=== PATIENT | male | born 1945 | race Caucasian/White ===

== ENCOUNTER 2018-03-30 11:22 | Observation (INO) ==
[2018-03-30 12:10] LABS: Baso # (Auto) 0.1 th/mm3 (0.0-0.2); Baso % (Auto) 0.7 % (0.0-2.0); Eos % (Auto) 0.6 % (0.0-4.0); Hematocrit 32.7 % (39.0-51.0); Hemoglobin 10.9 gm/dL (13.0-17.0); Lymph # (Auto) 0.9 th/mm3 (1.0-4.8); Lymph % (Auto) 12.6 % (9.0-44.0); Mean Corpuscular HGB Conc 33.4 % (32.0-36.0); Mean Corpuscular Volume 95.8 fL (80.0-100.0); Mean Platelet Volume 9.4 fL (7.0-11.0); Mono # (Auto) 0.5 th/mm3 (0.0-0.9); Mono % (Auto) 6.7 % (0.0-8.0); Neut % (Auto) 79.4 % (16.0-70.0); Platelet Count 216 th/mm3 (150-450); Red Blood Count 3.41 mil/mm3 (4.50-5.90); Red Cell Distribution Width 13.8 % (11.6-17.2); White Blood Count 7.5 th/mm3 (4.0-11.0)
[2018-03-30] MEDS ORDERED: Sod Chloride 0.9% Inj 1,000 ML IV.SIG SCH ×2 (12:15→14:15)
[2018-03-30 12:20] LABS: Bilirubin,Urine Negative (Negative); Clarity,Urine Clear (Clear); Color,Urine Colorless (Yellw/Straw); Glucose,Urine (UA) 500 or Greater mg/dL (Negative); Leukocyte Esterase,Urine Negative (Negative); Mucus,Urine Few /lpf (Occasional); Nitrite,Urine Negative (Negative); Specific Gravity,Urine 1.008 (1.002-1.035)
[2018-03-30 12:35] LABS: Alanine Aminotransferase 23 U/L (12-78); Albumin 3.8 g/dL (3.4-5.0); Anion Gap 8 meq/L (5-15); Aspartate Aminotransferase 14 U/L (15-37); Blood Urea Nitrogen 22 mg/dL (7-18); Calcium 9.2 mg/dL (8.5-10.1); Carbon Dioxide 26.5 meq/L (21.0-32.0); Chloride 102 meq/L (98-107); Glomerular Filtration Rate 43 mL/min (>89); Glucose,Random 343 mg/dL (74-106); Potassium 4.7 meq/L (3.5-5.1); Sodium 136 meq/L (136-145)
[2018-03-30 12:37] LABS: Alkaline Phosphatase 51 U/L (45-117)
--- NOTE | 2018-03-30 15:14 | ED ---
HPI General Chief complaint: Diabetic Stated complaint: Diabetic Complaint Time Seen by Provider: 03/30/18 11:50 History of Present Illness HPI narrative: This is a 73-year-old male with history of diabetes mellitus, who [facility] after he was found to have elevated blood sugar. Patient states he has been dizzy over the last 24-48 hours. He states that [facility] the [facility] to [facility] today and they noted his blood sugar to be in the 400s. The patient reports positional dizziness. He states the dizziness is worse when he gets up from a sitting or lying position. He denies any chest pain, chest pressure. He does report having palpitations with the dizziness. He does report polyuria. He denies any polydipsia. Related Data Home Medications Medication Instructions Recorded Confirmed insulin aspart U-100 [Novolog 3 unit SUBCUT AC LUNCH 03/31/18 03/31/18 Flexpen U-100 Insulin] Previous Rx's Medication Instructions Recorded insulin degludec [Tresiba 24 unit SUBCUT DAILY #0 ml 03/31/18 FlexTouch U-100] Allergies Allergy/AdvReac Type Severity Reaction Status Date / Time No Known Allergies Allergy Mild Blister Uncoded 03/30/18 11:27 Review of Systems ROS: all other systems reviewed are negative Constitutional Denies chills and Denies fever(s) Eyes Reports system reviewed and no additional complaints, except as docu ENT Reports system reviewed and no additional complaints, except as docu Cardiovascular Denies chest pain and Reports palpitations Respiratory Denies chest congestion and Denies dyspnea Gastrointestinal Denies diarrhea, Denies nausea and Denies vomiting Genitourinary Denies dysuria and Reports urinary frequency Musculoskeletal Reports system reviewed and no additional complaints, except as docu Neurologic Reports dizziness, Denies headache(s), Denies paresthesias and Denies weakness Endocrine Denies polydipsia and Reports polyuria [facility] Medical History Medical History Diabetes (Acute) HTN (hypertension) (Acute) Hyperlipemia, mixed (Acute) Surgical History Surgical History History of appendectomy (Acute) History of tonsillectomy (Acute) Social History Social History Substance History: No History of Abuse Second Hand Smoke Exposure: Yes Smoking Status: Former smoker Tobacco Type: Cigarettes How Often Do You Have a Drink Containing Alcohol: 4 or more times a week Recent Travel in [facility] within the Last 8 Weeks: No Recent Out of Country Travel within the Last 8 Weeks: No Immunization History Tetanus Immunization: Unsure Exam Narrative Exam Narrative: GENERAL: Well-developed well-nourished male in no acute respiratory distress. SKIN: Focused skin assessment warm/dry. No tenting. HEAD: Atraumatic. Normocephalic. EYES: No scleral icterus. No injection or drainage. ENT: No nasal bleeding or discharge. Mucous membranes pink and dry. NECK: Trachea midline. No JVD. Supple. CARDIOVASCULAR: Regular rate and rhythm. No murmur appreciated. RESPIRATORY: No accessory muscle use. Clear to auscultation. Breath sounds equal bilaterally. GASTROINTESTINAL: Abdomen soft, non-tender, nondistended. Hepatic and splenic margins not palpable. MUSCULOSKELETAL: No obvious deformities. No clubbing. No cyanosis. No edema. NEUROLOGICAL: Awake and alert. No obvious cranial nerve deficits. Motor grossly within normal limits. Normal speech. Patient still has positional/ orthostatic dizziness. Course Initial Documented Vital Signs Temperature 98.3 F 03/30/18 11:27 Pulse Rate 98 H 03/30/18 11:27 Respiratory Rate 16 03/30/18 11:27 Blood Pressure 156/82 H 03/30/18 11:27 Pulse Oximetry 98 03/30/18 11:27 Last Documented Vital Signs Temperature 97.5 F L 03/31/18 12:00 Pulse Rate 73 03/31/18 12:00 Respiratory Rate 14 03/31/18 12:00 Blood Pressure 138/65 03/31/18 12:00 Pulse Oximetry 97 03/31/18 12:00 Medical Decision Making [facility] Narrative Medical decision making narrative: This is a 73-year-old male with a history of insulin dependent diabetes, hypertension, presents [facility] the request [facility] for [facility] and elevated blood sugar. Patient states that his blood sugar is usually fairly well controlled. [facility] Blood sugar was 343. Patient reports polyuria. Patient's creatinine was also 1.58. We do not have a baseline to compare with. Concern here is the patient has acute on chronic kidney injury. The patient will be admitted for hydration. Case was discussed with the [facility] hospitalist who agrees for an observation admission. He had been given 2 IV boluses. He feels better however still having some baseline dizziness. Medical Screen Exam Complete: Yes Emergency Medical Condition: Yes Differential Diagnosis Differential Diagnosis: Metabolic derangement versus uncontrolled hyperglycemia versus infectious process Lab Data Result diagrams: 03/31/18 04:26 03/31/18 04:26 Lab Results 03/30/18 03/30/18 03/30/18 Range/Units 11:58 11:58 11:58 WBC 7.5 (4.0-11.0) th/mm3 RBC 3.41 L (4.50-5.90) mil/mm3 Hgb 10.9 L (13.0-17.0) gm/dL Hct 32.7 L (39.0-51.0) % MCV 95.8 (80.0-100.0) fL MCH 32.0 (27.0-34.0) pg MCHC 33.4 (32.0-36.0) % RDW 13.8 (11.6-17.2) % Plt Count 216 (150-450) th/mm3 MPV 9.4 (7.0-11.0) fL Neut % (Auto) 79.4 H (16.0-70.0) % Lymph % (Auto) 12.6 (9.0-44.0) % [place] % (Auto) 6.7 (0.0-8.0) % Eos % (Auto) 0.6 (0.0-4.0) % Baso % (Auto) 0.7 (0.0-2.0) % Neut # (Auto) 6.0 (1.8-7.7) th/mm3 Lymph # (Auto) 0.9 L (1.0-4.8) th/mm3 [place] # (Auto) 0.5 (0.0-0.9) th/mm3 Eos # (Auto) 0.0 (0.0-0.4) th/mm3 Baso # (Auto) 0.1 (0.0-0.2) th/mm3 WBC Differential . Differential Comment Auto diff final Sodium 136 (136-145) meq/L Potassium 4.7 (3.5-5.1) meq/L Chloride 102 (98-107) meq/L Carbon Dioxide 26.5 (21.0-32.0) meq/L Anion Gap 8 (5-15) meq/L BUN 22 H (7-18) mg/dL Creatinine 1.58 H (0.60-1.30) mg/dL Estimated GFR 43 L (>89) mL/min POC Glucose (68-110) mg/dl Random Glucose 343 H (74-106) mg/dL Calcium 9.2 (8.5-10.1) mg/dL Total Bilirubin 0.5 (0.2-1.0) mg/dL AST 14 L (15-37) U/L ALT 23 (12-78) U/L Alkaline Phosphatase 51 (45-117) U/L Troponin I (0.02-0.05) ng/mL Total Protein 7.0 (6.4-8.2) g/dL Albumin 3.8 (3.4-5.0) g/dL Urine Color Colorless (Yellw/Straw) Urine Clarity Clear (Clear) Urine pH 7.0 (5.0-8.5) Ur Specific [place] 1.008 (1.002-1.035) Urine Protein Negative (Neg-Trace) mg/dL Urine Glucose (UA) 500 or greater (Negative) mg/dL Urine Ketones Negative (Negative) mg/dL Urine Occult Blood Negative (Negative) Urine Nitrate Negative (Negative) Urine Bilirubin Negative (Negative) Urine Urobilinogen Less than 2 (Less than 2) mg/dL Ur Leukocyte Esterase Negative (Negative) Urine Mucus Few H (Occasional) /lpf Micro UA Comment Culture not ind Ur Microscopic Review Not Reportable Urine Culture Comments Culture not ind 03/30/18 03/30/18 03/30/18 Range/Units 11:58 12:48 15:02 WBC (4.0-11.0) th/mm3 RBC (4.50-5.90) mil/mm3 Hgb (13.0-17.0) gm/dL Hct (39.0-51.0) % MCV (80.0-100.0) fL MCH (27.0-34.0) pg MCHC (32.0-36.0) % RDW (11.6-17.2) % Plt Count (150-450) th/mm3 MPV (7.0-11.0) fL Neut % (Auto) (16.0-70.0) % Lymph % (Auto) (9.0-44.0) % [place] % (Auto) (0.0-8.0) % Eos % (Auto) (0.0-4.0) % Baso % (Auto) (0.0-2.0) % Neut # (Auto) (1.8-7.7) th/mm3 Lymph # (Auto) (1.0-4.8) th/mm3 [place] # (Auto) (0.0-0.9) th/mm3 Eos # (Auto) (0.0-0.4) th/mm3 Baso # (Auto) (0.0-0.2) th/mm3 WBC Differential Differential Comment Sodium (136-145) meq/L Potassium (3.5-5.1) meq/L Chloride (98-107) meq/L Carbon Dioxide (21.0-32.0) meq/L Anion Gap (5-15) meq/L BUN (7-18) mg/dL Creatinine (0.60-1.30) mg/dL Estimated GFR (>89) mL/min POC Glucose 348 H 208 H (68-110) mg/dl Random Glucose (74-106) mg/dL Calcium (8.5-10.1) mg/dL Total Bilirubin (0.2-1.0) mg/dL AST (15-37) U/L ALT (12-78) U/L Alkaline Phosphatase (45-117) U/L Troponin I Less than 0.02 L (0.02-0.05) ng/mL Total Protein (6.4-8.2) g/dL Albumin (3.4-5.0) g/dL Urine Color (Yellw/Straw) Urine Clarity (Clear) Urine pH (5.0-8.5) Ur Specific [place] (1.002-1.035) Urine Protein (Neg-Trace) mg/dL Urine Glucose (UA) (Negative) mg/dL Urine Ketones (Negative) mg/dL Urine Occult Blood (Negative) Urine Nitrate (Negative) Urine Bilirubin (Negative) Urine Urobilinogen (Less than 2) mg/dL Ur Leukocyte Esterase (Negative) Urine Mucus (Occasional) /lpf Micro UA Comment Ur Microscopic Review Urine Culture Comments 03/30/18 03/30/18 03/30/18 Range/Units 17:46 19:44 22:52 WBC (4.0-11.0) th/mm3 RBC (4.50-5.90) mil/mm3 Hgb (13.0-17.0) gm/dL Hct (39.0-51.0) % MCV (80.0-100.0) fL MCH (27.0-34.0) pg MCHC (32.0-36.0) % RDW (11.6-17.2) % Plt Count (150-450) th/mm3 MPV (7.0-11.0) fL Neut % (Auto) (16.0-70.0) % Lymph % (Auto) (9.0-44.0) % [place] % (Auto) (0.0-8.0) % Eos % (Auto) (0.0-4.0) % Baso % (Auto) (0.0-2.0) % Neut # (Auto) (1.8-7.7) th/mm3 Lymph # (Auto) (1.0-4.8) th/mm3 [place] # (Auto) (0.0-0.9) th/mm3 Eos # (Auto) (0.0-0.4) th/mm3 Baso # (Auto) (0.0-0.2) th/mm3 WBC Differential Differential Comment Sodium (136-145) meq/L Potassium (3.5-5.1) meq/L Chloride (98-107) meq/L Carbon Dioxide (21.0-32.0) meq/L Anion Gap (5-15) meq/L BUN (7-18) mg/dL Creatinine (0.60-1.30) mg/dL Estimated GFR (>89) mL/min POC Glucose 147 H 188 H 184 H (68-110) mg/dl Random Glucose (74-106) mg/dL Calcium (8.5-10.1) mg/dL Total Bilirubin (0.2-1.0) mg/dL AST (15-37) U/L ALT (12-78) U/L Alkaline Phosphatase (45-117) U/L Troponin I (0.02-0.05) ng/mL Total Protein (6.4-8.2) g/dL Albumin (3.4-5.0) g/dL Urine Color (Yellw/Straw) Urine Clarity (Clear) Urine pH (5.0-8.5) Ur Specific [place] (1.002-1.035) Urine Protein (Neg-Trace) mg/dL Urine Glucose (UA) (Negative) mg/dL Urine Ketones (Negative) mg/dL Urine Occult Blood (Negative) Urine Nitrate (Negative) Urine Bilirubin (Negative) Urine Urobilinogen (Less than 2) mg/dL Ur Leukocyte Esterase (Negative) Urine Mucus (Occasional) /lpf Micro UA Comment Ur Microscopic Review Urine Culture Comments 03/31/18 03/31/18 03/31/18 Range/Units 04:26 04:26 06:06 WBC 6.3 (4.0-11.0) th/mm3 RBC 3.31 L (4.50-5.90) mil/mm3 Hgb 10.6 L (13.0-17.0) gm/dL Hct 31.6 L (39.0-51.0) % MCV 95.4 (80.0-100.0) fL MCH 32.1 (27.0-34.0) pg MCHC 33.6 (32.0-36.0) % RDW 13.7 (11.6-17.2) % Plt Count 220 (150-450) th/mm3 MPV 9.6 (7.0-11.0) fL Neut % (Auto) 62.7 (16.0-70.0) % Lymph % (Auto) 21.9 (9.0-44.0) % [place] % (Auto) 10.3 H (0.0-8.0) % Eos % (Auto) 3.8 (0.0-4.0) % Baso % (Auto) 1.3 (0.0-2.0) % Neut # (Auto) 3.9 (1.8-7.7) th/mm3 Lymph # (Auto) 1.4 (1.0-4.8) th/mm3 [place] # (Auto) 0.6 (0.0-0.9) th/mm3 Eos # (Auto) 0.2 (0.0-0.4) th/mm3 Baso # (Auto) 0.1 (0.0-0.2) th/mm3 WBC Differential . Differential Comment Auto diff final Sodium 144 (136-145) meq/L Potassium 4.2 (3.5-5.1) meq/L Chloride 110 H D (98-107) meq/L Carbon Dioxide 28.7 (21.0-32.0) meq/L Anion Gap 5 (5-15) meq/L BUN 19 H (7-18) mg/dL Creatinine 1.26 (0.60-1.30) mg/dL Estimated GFR 56 L (>89) mL/min POC Glucose 54 L (68-110) mg/dl Random Glucose 36 L* D (74-106) mg/dL Calcium 8.3 L D (8.5-10.1) mg/dL Total Bilirubin (0.2-1.0) mg/dL AST (15-37) U/L ALT (12-78) U/L Alkaline Phosphatase (45-117) U/L Troponin I (0.02-0.05) ng/mL Total Protein (6.4-8.2) g/dL Albumin (3.4-5.0) g/dL Urine Color (Yellw/Straw) Urine Clarity (Clear) Urine pH (5.0-8.5) Ur Specific [place] (1.002-1.035) Urine Protein (Neg-Trace) mg/dL Urine Glucose (UA) (Negative) mg/dL Urine Ketones (Negative) mg/dL Urine Occult Blood (Negative) Urine Nitrate (Negative) Urine Bilirubin (Negative) Urine Urobilinogen (Less than 2) mg/dL Ur Leukocyte Esterase (Negative) Urine Mucus (Occasional) /lpf Micro UA Comment Ur Microscopic Review Urine Culture Comments 03/31/18 03/31/18 03/31/18 Range/Units 06:08 06:25 06:41 WBC (4.0-11.0) th/mm3 RBC (4.50-5.90) mil/mm3 Hgb (13.0-17.0) gm/dL Hct (39.0-51.0) % MCV (80.0-100.0) fL MCH (27.0-34.0) pg MCHC (32.0-36.0) % RDW (11.6-17.2) % Plt Count (150-450) th/mm3 MPV (7.0-11.0) fL Neut % (Auto) (16.0-70.0) % Lymph % (Auto) (9.0-44.0) % [place] % (Auto) (0.0-8.0) % Eos % (Auto) (0.0-4.0) % Baso % (Auto) (0.0-2.0) % Neut # (Auto) (1.8-7.7) th/mm3 Lymph # (Auto) (1.0-4.8) th/mm3 [place] # (Auto) (0.0-0.9) th/mm3 Eos # (Auto) (0.0-0.4) th/mm3 Baso # (Auto) (0.0-0.2) th/mm3 WBC Differential Differential Comment Sodium (136-145) meq/L Potassium (3.5-5.1) meq/L Chloride (98-107) meq/L Carbon Dioxide (21.0-32.0) meq/L Anion Gap (5-15) meq/L BUN (7-18) mg/dL Creatinine (0.60-1.30) mg/dL Estimated GFR (>89) mL/min POC Glucose 55 L 76 96 (68-110) mg/dl Random Glucose (74-106) mg/dL Calcium (8.5-10.1) mg/dL Total Bilirubin (0.2-1.0) mg/dL AST (15-37) U/L ALT (12-78) U/L Alkaline Phosphatase (45-117) U/L Troponin I (0.02-0.05) ng/mL Total Protein (6.4-8.2) g/dL Albumin (3.4-5.0) g/dL Urine Color (Yellw/Straw) Urine Clarity (Clear) Urine pH (5.0-8.5) Ur Specific [place] (1.002-1.035) Urine Protein (Neg-Trace) mg/dL Urine Glucose (UA) (Negative) mg/dL Urine Ketones (Negative) mg/dL Urine Occult Blood (Negative) Urine Nitrate (Negative) Urine Bilirubin (Negative) Urine Urobilinogen (Less than 2) mg/dL Ur Leukocyte Esterase (Negative) Urine Mucus (Occasional) /lpf Micro UA Comment Ur Microscopic Review Urine Culture Comments 03/31/18 03/31/18 03/31/18 Range/Units 06:57 08:08 11:02 WBC (4.0-11.0) th/mm3 RBC (4.50-5.90) mil/mm3 Hgb (13.0-17.0) gm/dL Hct (39.0-51.0) % MCV (80.0-100.0) fL MCH (27.0-34.0) pg MCHC (32.0-36.0) % RDW (11.6-17.2) % Plt Count (150-450) th/mm3 MPV (7.0-11.0) fL Neut % (Auto) (16.0-70.0) % Lymph % (Auto) (9.0-44.0) % [place] % (Auto) (0.0-8.0) % Eos % (Auto) (0.0-4.0) % Baso % (Auto) (0.0-2.0) % Neut # (Auto) (1.8-7.7) th/mm3 Lymph # (Auto) (1.0-4.8) th/mm3 [place] # (Auto) (0.0-0.9) th/mm3 Eos # (Auto) (0.0-0.4) th/mm3 Baso # (Auto) (0.0-0.2) th/mm3 WBC Differential Differential Comment Sodium (136-145) meq/L Potassium (3.5-5.1) meq/L Chloride (98-107) meq/L Carbon Dioxide (21.0-32.0) meq/L Anion Gap (5-15) meq/L BUN (7-18) mg/dL Creatinine (0.60-1.30) mg/dL Estimated GFR (>89) mL/min POC Glucose 147 H 221 H 245 H (68-110) mg/dl Random Glucose (74-106) mg/dL Calcium (8.5-10.1) mg/dL Total Bilirubin (0.2-1.0) mg/dL AST (15-37) U/L ALT (12-78) U/L Alkaline Phosphatase (45-117) U/L Troponin I (0.02-0.05) ng/mL Total Protein (6.4-8.2) g/dL Albumin (3.4-5.0) g/dL Urine Color (Yellw/Straw) Urine Clarity (Clear) Urine pH (5.0-8.5) Ur Specific [place] (1.002-1.035) Urine Protein (Neg-Trace) mg/dL Urine Glucose (UA) (Negative) mg/dL Urine Ketones (Negative) mg/dL Urine Occult Blood (Negative) Urine Nitrate (Negative) Urine Bilirubin (Negative) Urine Urobilinogen (Less than 2) mg/dL Ur Leukocyte Esterase (Negative) Urine Mucus (Occasional) /lpf Micro UA Comment Ur Microscopic Review Urine Culture Comments Discharge Plan Discharge Disposition Patient Disposition: 01 Discharge Home Discharge Condition Condition: Good Discharge Order Discharge Orders: Discharge Order (Routine); Ordered 03/31/18 Ordered By: Romero Magallanes Discharge Details Diagnosis: Uncontrolled diabetes mellitus with hyperglycemia, Dizziness, Acute kidney injury Physicians Team ED Provider: Jay Vargas Primary Care Provider: [facility] 's Attending Provider: Selvin Rosales Discharge Interventions Interventions: ED Discharge Assessment Last Done: 03/30/18 16:58 Status ED Status: Left Department Discharge Information Discharge Date/Time: 03/30/18 17:12 Discharge Location: All at Home
--- NOTE | 2018-03-30 15:55 | P.HPFP ---
History of Present Illness Primary Care Physician: Physician 's [facility] History of Present Illness: This patient is a 73-year-old male with a past medical history of insulin- dependent diabetes and hypertension who has been admitted for observation for symptomatic hyperglycemia. Patient reports that he began to feel "out of it" since yesterday afternoon. He reports that last night he checked his sugars which were found to be in the 400s and administered 15 units of NovoLog which dropped his blood sugar to 200. Patient then went to sleep. Upon waking up patient checked his sugar once again found to be 54 at which point he drank a can of soda and went on about his day. Patient had previous ophthalmology appointment at the [place] and while there he was found to have a sugar of 400 and was sent to the ED by the attending physician. Patient denies any nausea, vomiting, chills, fever, dizziness, vision changes, diarrhea or constipation, but does endorse polyuria without hematuria or dysuria as well as also endorses pain in the hips when he walks. Of note: During our conversation patient mentioned that he has had a sharp pain in his chest. He reports that this pain is been present for several years and has been worked up by his doctor previously. He has gone 1 year since feeling this chest pain but it began again a couple weeks ago. He described the chest pain is sharp and midway between his left nipple and sternum. He reports that the pain lasts 1 second and is self resolving. It is not related to activity, position, or food. He says there are no exacerbating or alleviating factors and the pain does not radiate. He describes the pain as sharp as it is a 5 out of 10. The last time he experiences pain was this morning. PMHx: HTN, Insulin dependent diabetes diagnoses 22 years. Surgical Hx: Appendectomy in 1951, tonsillectomy in 1951, Meds: 26 units of long acting insulin once in the morning, and 3 units of novolog before lunch FHx: Brother of [place] at age of 66 a month ago Social Hx: Myranda from [place]. for 1 year, at 76 from COPD. The patient lives alone and is retired from cabinet work. He has 2 kids, a son and a daughter and are both healthy. 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 During this time he never deployed and spent his [facility]. He reports a 30 pack year smoking history but quit 35 years ago, je drinks 1 beer every night, he is a never drug user. Allergies: NKA Code: Full, Daughter Yusra Emmanuel is decision maker if patient becomes incapacitated. - Diagnosis (1) Hyperglycemia (2) Insulin dependent diabetes mellitus (3) Hypertension (4) Nutrition, metabolism, and development symptoms Review of Systems Constitutional: Denies chills, Denies fever(s), Denies headache(s), Denies dizziness, denies recent illnesses Eyes: Denies change in vision, Denies double vision, Denies blurry vision Cardiovascular: Endorses chest pain as stated in HPI, Denies fast heart rate, Denies rapid, pounding, or irregular heartbeat Respiratory: Denies shortness of breath or wheezing Gastrointestinal: Denies abdominal pain, Denies constipation, Denies loose stools, Denies nausea, Denies vomiting Genitourinary: Endorses urinary frequency, denies difficulty urinating, Denies painful urination, Denies blood in urine PMFSH - History History Provided By: Patient - Medical History Medical History: Medical History (Last Updated 03/30/18 @ 11:33 by Alayna Ross) Diabetes HTN (hypertension) Hyperlipemia, mixed - Tobacco History Second Hand Smoke Exposure: No Tobacco Use In Past 30 Days: No Smoking Status: Never smoker Tobacco Type: Cigarettes - Alcohol History How Often Do You Have a Drink Containing Alcohol: Monthly or less - Substance Use History Substance History: No History of Abuse - Travel History Recent Travel in the [facility] Within the Last 8 Weeks: No Recent Travel Out of the Country Within the Last 8 Weeks: No - Immunization History Tetanus Immunization: Unsure Medications and Allergies Active Medications: Active Medications Sodium Chloride (Ns Inj) 1,000 mls @ 0 mls/hr IV.SIG BOLUS CARLIE Last Infusion: 03/30/18 14:09 Dose: Infused Sodium Chloride (Ns Inj) 1,000 mls @ 0 mls/hr IV.SIG BOLUS CARLIE Last Infusion: 03/30/18 14:34 Dose: Infused Allergies Allergy/AdvReac Type Severity Reaction Status Date / Time No Known Allergies Allergy Mild Blister Uncoded 03/30/18 11:27 Home Medications Medication Instructions Recorded Confirmed Type Unable to Obtain Home Meds 03/30/18 03/30/18 History Exam Vital signs: Vital Signs 03/30/18 11:27 03/30/18 11:45 Temperature 98.3 F 98.2 F Pulse Rate 98 H 80 Respiratory Rate 16 16 Blood Pressure 156/82 H 172/80 H Pulse Oximetry 98 Intake & Output 03/29/18 03/30/18 03/30/18 18:59 06:59 18:59 Intake Total 1999 Balance 1999 Weight 77.111 kg Intake: IV 1999 NS Inj 1,000 ML @ Wide Open IV. 1999 SIG BOLUS CARLIE Rx#:[id number] Narrative: GENERAL: Well-nourished, well-developed patient. No acute distress. SKIN: Warm and dry. No rash. EYES: No scleral icterus. No injection or drainage. PERRLA. EOMI. HENT: Normocephalic. Atraumatic. Mucous membranes mildly dry. NECK: Supple, trachea midline. No JVD or lymphadenopathy. CARDIOVASCULAR: Regular rate and rhythm without obvious murmurs, gallops, or rubs. RESPIRATORY: Breath sounds equal bilaterally. No accessory muscle use. CTAB. GASTROINTESTINAL: Abdomen soft, non-tender, nondistended. BS WNL. MUSCULOSKELETAL: No cyanosis or edema. Strength grossly WNL. BACK: Nontender without obvious deformity. No CVA tenderness. NEURO/PSYCH: Afocal. Awake, alert, and oriented x3. Results - Labs Result diagrams: 03/30/18 11:58 03/30/18 11:58 Abnormal lab results 03/30/18 03/30/18 03/30/18 Range/Units 11:58 11:58 11:58 RBC 3.41 L (4.50-5.90) mil/mm3 Hgb 10.9 L (13.0-17.0) gm/dL Hct 32.7 L (39.0-51.0) % Neut % (Auto) 79.4 H (16.0-70.0) % Lymph # (Auto) 0.9 L (1.0-4.8) th/mm3 BUN 22 H (7-18) mg/dL Creatinine 1.58 H (0.60-1.30) mg/dL Estimated GFR 43 L (>89) mL/min POC Glucose (68-110) mg/dl Random Glucose 343 H (74-106) mg/dL AST 14 L (15-37) U/L Urine Mucus Few H (Occasional) /lpf 03/30/18 03/30/18 Range/Units 12:48 15:02 RBC (4.50-5.90) mil/mm3 Hgb (13.0-17.0) gm/dL Hct (39.0-51.0) % Neut % (Auto) (16.0-70.0) % Lymph # (Auto) (1.0-4.8) th/mm3 BUN (7-18) mg/dL Creatinine (0.60-1.30) mg/dL Estimated GFR (>89) mL/min POC Glucose 348 H 208 H (68-110) mg/dl Random Glucose (74-106) mg/dL AST (15-37) U/L Urine Mucus (Occasional) /lpf Short CBC 03/30/18 Range/Units 11:58 WBC 7.5 (4.0-11.0) th/mm3 Hgb 10.9 L (13.0-17.0) gm/dL Hct 32.7 L (39.0-51.0) % Plt Count 216 (150-450) th/mm3 BMP 03/30/18 11:58 Sodium 136 Potassium 4.7 Chloride 102 Carbon Dioxide 26.5 BUN 22 H Creatinine 1.58 H Calcium 9.2 Liver Function 03/30/18 Range/Units 11:58 Total Bilirubin 0.5 (0.2-1.0) mg/dL AST 14 L (15-37) U/L ALT 23 (12-78) U/L Alkaline Phosphatase 51 (45-117) U/L Albumin 3.8 (3.4-5.0) g/dL Urine 03/30/18 Range/Units 11:58 Urine Color Colorless (Yellw/Straw) Urine Clarity Clear (Clear) Urine pH 7.0 (5.0-8.5) Ur Specific [place] 1.008 (1.002-1.035) Urine Protein Negative (Neg-Trace) mg/dL Urine Glucose (UA) 500 or greater (Negative) mg/dL Caprini VTE Risk Assessment Caprini VTE Risk Assessment: Moderate/High Risk (score >= 2) Caprini Risk Assessment Model: Point Value = 1 Point Value = 2 Point Value = 3 Point Value = 5 Age 41-60 Minor surgery BMI > 25 kg/m2 Swollen legs Varicose veins or History of unexplained or recurrent spontaneous Oral contraceptives or hormone replacement Sepsis (< 1 month) Serious lung disease, including pneumonia (< 1 month) Abnormal pulmonary function Acute myocardial infarction Congestive heart failure (< 1 month) History of inflammatory bowel disease Medical patient at bed rest Age 61-74 Arthroscopic surgery Major open surgery (> 45 min) Laparoscopic surgery (> 45 min) Malignancy Confined to bed (> 72 hours) Immobilizing plaster cast Central venous access Age >= 75 History of VTE Family history of VTE Factor V Leiden Prothrombin [id number] Lupus anticoagulant Anticardiolipin antibodies Elevated serum homocysteine Heparin-induced thrombocytopenia Other congenital or acquired thrombophilia Stroke (< 1 month) Elective arthroplasty Hip, pelvis, or leg fracture Acute spinal cord injury (< 1 month) Prophylaxis Regimen: Total Risk Factor Score Risk Level Prophylaxis Regimen 0-1 Low Early ambulation 2 Moderate Order ONE of the following: *Sequential Compression Device (SCD) *Heparin 5000 units SQ BID 3-4 Higher Order ONE of the following medications: *Heparin 5000 units SQ TID *Enoxaparin/Lovenox 40 mg SQ daily (WT < 150 kg, CrCl > 30 mL/min) *Enoxaparin/Lovenox 30 mg SQ daily (WT < 150 kg, CrCl > 10-29 mL/min) *Enoxaparin/Lovenox 30 mg SQ BID (WT < 150 kg, CrCl > 30 mL/min) AND/OR *Sequential Compression Device (SCD) 5 or more Highest Order ONE of the following medications: *Heparin 5000 units SQ TID (Preferred with Epidurals) *Enoxaparin/Lovenox 40 mg SQ daily (WT < 150 kg, CrCl > 30 mL/min) *Enoxaparin/Lovenox 30 mg SQ daily (WT < 150 kg, CrCl > 10-29 mL/min) *Enoxaparin/Lovenox 30 mg SQ BID (WT < 150 kg, CrCl > 30 mL/min) AND *Sequential Compression Device (SCD) Assessment and Plan - Assessment (1) Hyperglycemia Code(s): R73.9 - Hyperglycemia, unspecified Status: Acute Plan: This patient is a 73-year-old male with a past medical history of insulin- dependent diabetes and hypertension who has been admitted for observation for symptomatic hyperglycemia. Patient presents to the ED after having a blood sugar level of 400 and feeling "off". Patient could not really expand beyond this definition. Patient found to have a blood sugar of 343 on admission. On admission patient was also feeling much better and currently asymptomatic. Patient received 2 1 L boluses of normal saline in the ED. Patient able to hydrate via p.o. -Hydrate orally. -Low-dose sliding scale -Monitor blood glucose levels -Replete potassium as needed, 4.7 on admission -Hypoglycemia protocol in place (2) Insulin dependent diabetes mellitus Code(s): E11.9 - Type 2 diabetes mellitus without complications; Z79.4 - exterminator (current) use of insulin Status: Acute Plan: See plan above for hyperglycemia. (3) Hypertension Code(s): I10 - Essential (primary) hypertension Status: Acute Plan: Patient suffers from hypertension was treated outpatient with with medication that the patient cannot remember. His blood pressure admission was 156/82. -Clonidine as needed (4) Nutrition, metabolism, and development symptoms Code(s): R63.8 - Other symptoms and signs concerning food and fluid intake Status: Acute Plan: Fluids: No fluids indicated at this time Electrolytes: Replete as needed Nutrition: Diabetic diet DVT prophylaxis: SCDs
[2018-03-30] MEDS ORDERED: Dextrose 50% in Water 50 ML Vial IV.PUSH PRN (16:16)
[2018-03-30] MEDS ORDERED: Naloxone Inj 0.4 MG/ML Vial IV.PUSH PRN (16:16)
[2018-03-30] MEDS ORDERED: Enoxaparin Inj 40 MG/0.4 ML Syringe SQ SCH (16:30)
[2018-03-30] MEDS: Insulin NovoLOG Aspart Correctional Sugar Inj SQ SCH ×2 (18:01→20:22)
[2018-03-31 05:38] LABS: Baso # (Auto) 0.1 th/mm3 (0.0-0.2); Baso % (Auto) 1.3 % (0.0-2.0); Eos # (Auto) 0.2 th/mm3 (0.0-0.4); Eos % (Auto) 3.8 % (0.0-4.0); Hematocrit 31.6 % (39.0-51.0); Hemoglobin 10.6 gm/dL (13.0-17.0); Lymph # (Auto) 1.4 th/mm3 (1.0-4.8); Lymph % (Auto) 21.9 % (9.0-44.0); Mean Corpuscular HGB Conc 33.6 % (32.0-36.0); Mean Corpuscular Hemoglobin 32.1 pg (27.0-34.0); Mean Corpuscular Volume 95.4 fL (80.0-100.0); Mean Platelet Volume 9.6 fL (7.0-11.0); Mono # (Auto) 0.6 th/mm3 (0.0-0.9); Mono % (Auto) 10.3 % (0.0-8.0); Neut # (Auto) 3.9 th/mm3 (1.8-7.7); Neut % (Auto) 62.7 % (16.0-70.0); Platelet Count 220 th/mm3 (150-450); Red Blood Count 3.31 mil/mm3 (4.50-5.90); Red Cell Distribution Width 13.7 % (11.6-17.2); White Blood Count 6.3 th/mm3 (4.0-11.0)
[2018-03-31 05:59] LABS: Calcium 8.3 mg/dL (8.5-10.1); Carbon Dioxide 28.7 meq/L (21.0-32.0); Potassium 4.2 meq/L (3.5-5.1)
[2018-03-31] MEDS: Insulin NovoLOG Aspart Correctional Sugar Inj SQ SCH ×2 (08:51→12:10)
--- NOTE | 2018-03-31 12:56 | P.PNFP ---
Subjective Interval history: Patient was seen at bedside this morning. Overnight patient was reported to have sinus bradycardia but was asymptomatic. Patient reports he had a good night and overall feels well but does feel little tired. Patient said that he has had erratic blood sugars in the past particularly in the last year. His blood sugars well controlled previously to that. Patient denies any subjective fevers, chills, shortness of breath, chest pain, nausea, or vomiting. All questions were answered to the patient's satisfaction. <Jus Mathew - 03/31/18 13:39> Results - Labs Result diagrams: 03/31/18 04:26 03/31/18 04:26 <Selvin Rosales - 04/01/18 18:33> Abnormal lab results 03/30/18 03/30/18 03/30/18 Range/Units 11:58 15:02 17:46 RBC (4.50-5.90) mil/mm3 Hgb (13.0-17.0) gm/dL Hct (39.0-51.0) % [place] % (Auto) (0.0-8.0) % Chloride (98-107) meq/L BUN (7-18) mg/dL Estimated GFR (>89) mL/min POC Glucose 208 H 147 H (68-110) mg/dl Random Glucose (74-106) mg/dL Calcium (8.5-10.1) mg/dL Troponin I Less than 0.02 L (0.02-0.05) ng/mL 03/30/18 03/30/18 03/31/18 Range/Units 19:44 22:52 04:26 RBC 3.31 L (4.50-5.90) mil/mm3 Hgb 10.6 L (13.0-17.0) gm/dL Hct 31.6 L (39.0-51.0) % Park % (Auto) 10.3 H (0.0-8.0) % Chloride (98-107) meq/L BUN (7-18) mg/dL Estimated GFR (>89) mL/min POC Glucose 188 H 184 H (68-110) mg/dl Random Glucose (74-106) mg/dL Calcium (8.5-10.1) mg/dL Troponin I (0.02-0.05) ng/mL 03/31/18 03/31/18 03/31/18 Range/Units 04:26 06:06 06:08 RBC (4.50-5.90) mil/mm3 Hgb (13.0-17.0) gm/dL Hct (39.0-51.0) % [place] % (Auto) (0.0-8.0) % Chloride 110 H D (98-107) meq/L BUN 19 H (7-18) mg/dL Estimated GFR 56 L (>89) mL/min POC Glucose 54 L 55 L (68-110) mg/dl Random Glucose 36 L* D (74-106) mg/dL Calcium 8.3 L D (8.5-10.1) mg/dL Troponin I (0.02-0.05) ng/mL 03/31/18 03/31/18 03/31/18 Range/Units 06:57 08:08 11:02 RBC (4.50-5.90) mil/mm3 Hgb (13.0-17.0) gm/dL Hct (39.0-51.0) % [place] % (Auto) (0.0-8.0) % Chloride (98-107) meq/L BUN (7-18) mg/dL Estimated GFR (>89) mL/min POC Glucose 147 H 221 H 245 H (68-110) mg/dl Random Glucose (74-106) mg/dL Calcium (8.5-10.1) mg/dL Troponin I (0.02-0.05) ng/mL Short CBC 03/31/18 Range/Units 04:26 WBC 6.3 (4.0-11.0) th/mm3 Hgb 10.6 L (13.0-17.0) gm/dL Hct 31.6 L (39.0-51.0) % Plt Count 220 (150-450) th/mm3 BMP 03/31/18 04:26 Sodium 144 Potassium 4.2 Chloride 110 H D Carbon Dioxide 28.7 BUN 19 H Creatinine 1.26 Calcium 8.3 L D Cardiac Enzymes 03/30/18 Range/Units 11:58 Troponin I Less than 0.02 L (0.02-0.05) ng/mL <Jus Mathew O - 03/31/18 12:56> Physical Exam Vital signs: Intake & Output 03/31/18 04/01/18 04/01/18 18:59 06:59 18:59 Other: Date of Last Bowel Movement 03/30/18 <Selvin Rosales - 04/01/18 18:33> Vital Signs 03/30/18 17:17 03/30/18 20:00 03/31/18 00:00 Temperature 97.6 F 98.3 F 97.7 F Pulse Rate 78 62 53 L Respiratory Rate 18 17 16 Blood Pressure 184/76 H 149/70 H 157/67 H Pulse Oximetry 98 98 100 03/31/18 00:29 03/31/18 01:28 03/31/18 04:00 Temperature 97.6 F Pulse Rate 49 L 65 52 L Respiratory Rate 16 Blood Pressure 143/66 H Pulse Oximetry 99 03/31/18 08:00 03/31/18 09:25 Temperature 98.0 F Pulse Rate 58 L 54 L Respiratory Rate 17 Blood Pressure 138/63 Pulse Oximetry 98 Intake & Output 03/30/18 03/31/18 03/31/18 18:59 06:59 18:59 Intake Total 2360 / 2360 Balance 2360 / 2360 Weight 77.111 kg 77 kg Intake: IV 1999 NS Inj 1,000 ML @ Wide Open IV. 1999 SIG BOLUS CARLIE Rx#:[id number] Oral 360 / 360 Other: # Voids 1 4 Date of Last Bowel Movement 03/30/18 Weight On Admission 77.111 kg <Jus Mathew - 03/31/18 12:56> Narrative: GENERAL: Well-nourished, well-developed patient. No acute distress. SKIN: Warm and dry. No rash. EYES: No scleral icterus. No injection or drainage. PERRLA. EOMI. HENT: Normocephalic. Atraumatic. Mucous membranes mildly dry. NECK: Supple, trachea midline. No JVD or lymphadenopathy. CARDIOVASCULAR: Regular rate and rhythm without obvious murmurs, gallops, or rubs. RESPIRATORY: Breath sounds equal bilaterally. No accessory muscle use. CTAB. GASTROINTESTINAL: Abdomen soft, non-tender, nondistended. BS WNL. MUSCULOSKELETAL: No cyanosis or edema. Strength grossly WNL. NEURO/PSYCH: Afocal. Awake, alert, and oriented x3. <Jus Mathew - 03/31/18 13:39> Assessment and Plan - Assessment (1) Hyperglycemia Code(s): R73.9 - Hyperglycemia, unspecified Status: Acute (2) Chest pain Code(s): R07.9 - Chest pain, unspecified Status: Acute (3) Insulin dependent diabetes mellitus Code(s): E11.9 - Type 2 diabetes mellitus without complications; Z79.4 - [facility] (current) use of insulin Status: Acute (4) Hypertension Code(s): I10 - Essential (primary) hypertension Status: Acute (5) Sinus bradycardia seen on bus driver/monitor Code(s): R00.1 - Bradycardia, unspecified Status: Acute (6) Nutrition, metabolism, and development symptoms Code(s): R63.8 - Other symptoms and signs concerning food and fluid intake Status: Acute <ConnieSelvin - 04/01/18 18:33> (1) Hyperglycemia Code(s): R73.9 - Hyperglycemia, unspecified Status: Acute Plan: This patient is a 73-year-old male with a past medical history of insulin- dependent diabetes and hypertension who has been admitted for observation for symptomatic hyperglycemia. Overnight patient was put on low-dose insulin sliding scale and had blood sugars ranging from 55-245. Patient reports he currently feels well and also reports that his current insulin regimen outpatient works well for him. He has a doctor at the [facility] who is following him closely. -Hydrate orally. -Low-dose sliding scale while inpatient -Monitor blood glucose levels -Replete potassium as needed, 4.7 on admission -Hypoglycemia protocol in place (2) Chest pain Code(s): R07.9 - Chest pain, unspecified Status: Acute Plan: Patient reports a long history of pinpoint sharp nonradiating chest pain just lateral to sternum. Patient has had chest pain worked up previously but has returned within the last year. The pain only last a second and is unrelated to activity position or food. Last time he experiences pain was yesterday he did not experience overnight. -Troponins negative -On telemetry patient was brought to have sinus bradycardia but no arrhythmias -Follow-up with outpatient provider (3) Insulin dependent diabetes mellitus Code(s): E11.9 - Type 2 diabetes mellitus without complications; Z79.4 - rn long term care (current) use of insulin Status: Acute Plan: See plan above for hyperglycemia. (4) Hypertension Code(s): I10 - Essential (primary) hypertension Status: Acute Plan: Patient suffers from hypertension was treated outpatient with with medication that the patient cannot remember. His blood pressure admission was 156/82. Patient was normotensive at 138/63 this morning. -Clonidine as needed (5) Sinus bradycardia seen on bus driver/monitor Code(s): R00.1 - Bradycardia, unspecified Status: Acute Plan: Patient was put on bus driver/monitor overnight. Pulse ranged from 49-58. Patient says although he does feel little tired he was overall asymptomatic. Patient had no arrhythmias noted on telemetry patient to follow-up with his outpatient provider. (6) Nutrition, metabolism, and development symptoms Code(s): R63.8 - Other symptoms and signs concerning food and fluid intake Status: Acute Plan: Fluids: No fluids indicated at this time Electrolytes: Replete as needed Nutrition: Diabetic diet DVT prophylaxis: SCDs <Jus Mathew - 03/31/18 13:40> - Attending Attestation The exam, history, and the medical decision-making described in the above note were completed with the assistance of the resident physician. I reviewed and agree with the findings presented. I attest that I had a [id number] encounter with the patient on the same day, and personally performed and documented my assessment and findings in the medical record. <Selvin Rosales - 04/01/18 18:33>
[2018-03-31 13:32] VITALS: BP 138/65; PULSE 73; RESP 14; TEMP 97.5; O2SAT 97
--- NOTE | 2018-04-01 01:04 | ECG ---
Date Performed: 03/30/2018 Time Performed: 12:05:01 PTAGE: 73 years EKG: Sinus rhythm WITH FIRST DEGREE AV BLOCK WITH OCCASIONAL SUPRAVENTRICULAR PREMATURE COMPLEXES BORDERLINE LEFT AXIS DEVIATION INCOMPLETE RIGHT BUNDLE BRANCH BLOCK ABNORMAL ECG PREVIOUS TRACING : 12/14/2009 13.01 DOCTOR: Akil Sharp Interpretating Date/Time 04/01/2018 01:02:38
== END 2018-03-31 13:55 | disposition home or self-care (01) ==
LOC: NEDA 11:22 → NEPC 11:22 → N06 16:59
PROVIDERS: ADMIT Family Medicine; ATTEND Family Medicine